=== PATIENT | male | born 1975 | race Caucasian/White ===

== ENCOUNTER → 2019-11-26 14:37 | Outpatient (CLI) | payer BC, SELFPAY ==
--- NOTE | ~2019-11-26 | MR_ITS ---
EXAMINATION: MR shoulder LT w con DATE: 11/26/2019 16:42 INDICATION: Left shoulder pain TECHNIQUE: Magnetic resonance imaging (MRI) of the left shoulder was performed following intra-artic ular gadolinium contrast injection and without intravenous contrast. Details of the glenohumeral join t injection have been dictated separately. Sequences included axial T2-weighted FS FSE, axial T1-luiz ghted FS FSE, coronal oblique T1-weighted FS FSE, coronal oblique T2-weighted FSE, sagittal T2-weight ed FS FSE, sagittal T1-weighted FSE, and ABER (abduction external rotation) T1-weighted FS FSE. COMPARISON: None. FINDINGS: Coracoacromial arch: The acromion undersurface is minimally curved in morphology (type I-II) with postoperative change of prior acromioplasty along the anterior acromion. Mild acromioclavicular osteoarthritis. Rotator cuff: Possible supraspinatus and infraspinatus tendinopathy. There is shallow articular sided fraying exten ding approximately 1.8 cm AP along the articular side of the distal 1 cm of the supraspinatus tendon and conjoined portion of the supraspinatus and infraspinatus tendons which is best appreciated on the ABER images. On the standard imaging (discernible as a minimal amount of contrast imbibition within the distal tendon without a measurable tear defect. There is a small full-thickness tear/perforation which appears to be located approximately 2 cm from the footplate at the junction of the supraspinatu s and infraspinatus tendons with there is a thin irregular tract of increased T1 signal extending acr oss the tendon to indicate with a small collection of contrast in the subacromial/subdeltoid bursa ov erlying infraspinatus tendon. The subscapularis is normal. Normal rotator cuff muscle bulk and signal . Biceps tendon, glenoid labrum and glenohumeral cartilage: Long head of the biceps tendon is intact. Irregular increased intrasubstance contrast signal at the s uperior glenoid labrum beginning at the 12:00 position and extending posteriorly to the 11:00 positio n consistent with labral tear. There appear to be suture anchor tracks along the underlying superior rim of the glenoid suggesting the tear is chronic with prior repair. No evident displacement of the l ikely repaired labrum or linear contrast signal the labrum from the underlying glenoid. Th e remainder of the glenoid labrum appears normal. There is some chondral surface regularity along the superomedial aspect of the humeral head. Bones and other: Normal marrow signal with no edema, fracture or pathologic marrow replacing process. IMPRESSION: 1. Irregular intrasubstance contrast and regular frayed appearing peripheral contour to the superior glenoid labrum with what appear to be suture anchor tracks at the superior rim of the labrum consiste nt with likely chronic repaired tear. No evident separation of the labrum from the underlying glenoid . 2. Bursal sided fraying/tear involving no greater than one third of the tendon thickness along the di stal 1 cm of the supraspinatus and conjoined supraspinatus/infraspinatus tendons. 3. Tiny full-thickness perforation which appears be located more peripherally approximately 2 cm from the footplate at the junction of the supraspinatus and infraspinatus tendons with extension of a sma ll amount of contrast into the subdeltoid bursa. 4. Mild glenohumeral and acromioclavicular osteoarthritis. 5. Changes of prior acromioplasty. Reviewed, dictated and finalized at location A. IMPRESSION: 1. Irregular intrasubstance contrast and regular frayed appearing peripheral co ntour to the superior glenoid labrum with what appear to be suture anchor track s at the superior rim of the labrum consistent with likely chronic repaired tea r. No
--- NOTE | ~2019-11-26 | XR_ITS ---
EXAMINATION: XR fl inj shoulder LT - MR/CT DATE: 11/26/2019 15:57 INDICATION: Left shoulder pain TECHNIQUE: A time-out was performed to verify the patient's name, date of , and procedure to b e performed. The procedure including the risks, benefits, and alternatives was discussed with the pat ient. Risks discussed included bleeding and infection. The patient understood the risks and agreed to proceed. The skin overlying the rotator cuff interval of the left glenohumeral joint was prepped an d draped in usual sterile fashion. Anesthetic was administered with 1% lidocaine subcutaneously. A 22 G needle was advanced under fluoroscopic guidance into the joint. Injection of 0.4 mL of Omnipaqu e 240 confirmed intra-articular position of the needle. Subsequently, injectate consisting of 12 mL of 2:1:1 mixture of sterile saline:Omnipaque 240:1% lidocaine mixed 200:1 with 529 mg/mL Multihance g adolinium contrast was instilled with intermittent fluoroscopy confirming intra-articular administrat ion. The needle was removed and the entry site was cleaned and dressed. There were no immediate comp lications. Fluoroscopy exposure time was 0.2 minutes. The total number of images was 177. FINDINGS: Real-time fluoroscopy demonstrates the needle in the left glenohumeral joint. Small, deep a rticular sided tear/perforation of the posterior rotator cuff, likely at the infraspinatus tendon and likely full-thickness. There is a small accumulation of a small collection of contrast in the subdel toid bursa which remains confined to the immediate vicinity of the tear. IMPRESSION: 1. Successful left glenohumeral joint injection of a dilute gadolinium contrast mixture for subsequen t MRI arthrogram which will be dictated separately. 2. Small full-thickness tear/perforation likely at the infraspinatus tendon. Correlate with separate MRI report for further detail.. Reviewed, dictated and finalized at location A. IMPRESSION: 1. Successful left glenohumeral joint injection of a dilute gadolinium contrast mixture for subsequent MRI arthrogram which will be dictated separately. 2. Small full-thickness tear/perforation likely at the infraspinatus tendon. Co rrelate with separate MRI report for further detail..
== END ==
DX: S46.812A Strain of other muscles, fascia and tendons at shoulder and upper arm level, left arm, initial encounter (principal); M19.012 Primary osteoarthritis, left shoulder; X58.XXXA Exposure to other specified factors, initial encounter
CPT/HCPCS: 23350; 73222; A9577; Q9966

== ENCOUNTER → 2019-12-12 12:52 | Outpatient (CLI) | payer BC, SELFPAY ==
--- NOTE | ~2019-12-12 | XR_ITS ---
EXAMINATION: XR fl inj shoulder RT - MR/CT EXAM DATE: 12/12/2019 14:29 INDICATION: Pain in right shoulder TECHNIQUE: A time-out was performed to verify the patient's name, date of , and procedure to b e performed. The procedure including the risks, benefits and alternatives were discussed with the pat ient. Risks discussed included bleeding and infection. The patient understood the risks and agreed to proceed. The skin overlying the right shoulder joint was prepped and draped in usual sterile fashio n. Anesthetic was administered with 2 milliliters 1% lidocaine subcutaneously. A 22 G needle was ad vanced under fluoroscopic guidance into the joint. A total of 10 mL of 1:200 of 529 mg/mL Multihance , 1:4 lidocaine, and 1:4 Omnipaque 240 was instilled. The needle was removed and the entry site w as cleaned and dressed. There were no immediate complications. The DAP for this procedure was 0.1 G ycm2. The procedure was performed on 12/12/2019. FINDINGS: Real-time fluoroscopy demonstrates the needle and contrast in the right shoulder joint. IMPRESSION: Successful right shoulder joint injection. Reviewed, dictated and finalized at location B. NEL SALES MANAGER
--- NOTE | ~2019-12-12 | MR_ITS ---
EXAMINATION: MR shoulder RT w con DATE: 12/12/2019 14:57 INDICATION: Right shoulder pain TECHNIQUE: Magnetic resonance imaging (MRI) of the right shoulder was performed following intra-omer cular gadolinium contrast injection and without intravenous contrast. Details of the glenohumeral lacey nt injection have been dictated separately. Sequences included axial T2-weighted FS FSE, axial T1-we ighted FS FSE, coronal oblique T1-weighted FS FSE, coronal oblique T2-weighted FSE, sagittal T2-weigh pete FS FSE, sagittal T1-weighted FSE, and ABER (abduction external rotation) T1-weighted FS FSE. COMPARISON: None. FINDINGS: Coracoacromial arch: The acromion undersurface is curved in morphology (type II). The coracoacromial ligament is normal. Severe acromioclavicular osteoarthritis with predominately cephalad directed osteophytes and with het erotopic ossification/loose body in the anterior aspect of the joint space. Rotator cuff: Mild supraspinatus tendinopathy with small shallow articular sided tear proximally 8 mm in the superi or facet footplate which is evident primarily on the ABER images. The infraspinatus, teres minor and subscapularis tendons are normal. Normal rotator cuff muscle bulk and signal. Biceps tendon, glenoid labrum and glenohumeral cartilage: Long head of the biceps tendon is normal. Normal sublabral foramen and labral sulcus at the anterosup erior glenoid. There is a labral tear which begins at approximately the 12:30 position anteriorly and extends posteriorly to approximately the 11:00 position. Maintained of the labrum is normal. Glenohu meral cartilage is normal. Bones and other: Normal marrow signal with no edema, fracture or pathologic marrow replacing process. Contrast is seen in the soft tissues at the rotator cuff interval likely reflecting small amount of extravasation at the site of the joint injection. No abnormal fluid signal in the subacromial/subdeltoid bursa to sugg est bursitis. IMPRESSION: 1. SLAP tear of the superior glenoid labrum. 2. Mild infraspinatus tendinopathy with small shallow articular sided tear/fraying centered 8 mm from the footplate. 3. Severe acromioclavicular osteoarthritis. Reviewed, dictated and finalized at location A. TH CARE CONSULTANT IMPRESSION: 1. SLAP tear of the superior glenoid labrum. 2. Mild infraspinatus tendinopathy with small shallow articular sided tear/fray ing centered 8 mm from the footplate. 3. Severe acromioclavicular osteoarthritis.
== END ==
PROVIDERS: PCP Family Medicine
DX: M19.011 Primary osteoarthritis, right shoulder (principal); S43.431A Superior glenoid labrum lesion of right shoulder, initial encounter; X58.XXXA Exposure to other specified factors, initial encounter
CPT/HCPCS: 23350; 73222; 77002; A9577; Q9966

== ENCOUNTER → 2021-10-08 08:51 | Outpatient (CLI) | payer BC, SELFPAY ==
--- NOTE | ~2021-10-08 | CT_ITS ---
EXAMINATION: CT brain wo con DATE: 10/08/2021 09:08 INDICATION: Loss of balance TECHNIQUE: Computed tomography (CT) of the head was performed without intravenous contrast. The mA wa s adjusted according to patient size. Iterative reconstruction technique was employed. Exam dose: 59 9.57 mGy-cm total exam DLP. COMPARISON: None FINDINGS: No intracranial mass lesion or hemorrhage or cerebrovascular accident. Normal ventricular s ize. Normal singh-white matter differentiation. No midline shift or mass effect. No subdural or epidur al hematoma. The orbital contents are unremarkable. The mastoid air cells and paranasal sinuses are normally developed and aerated. No fracture or bone destruction of the cranial vault. IMPRESSION: Negative Reviewed, dictated and finalized at Location [facility]. Reviewed, dictated and finalized at location B. IMPRESSION: Negative
== END ==
PROVIDERS: PCP Family Medicine
DX: R26.89 Other abnormalities of gait and mobility (principal)
CPT/HCPCS: 70450

== ENCOUNTER 2023-09-20 07:50 | Emergency (ER) | payer BC, SELFPAY ==
[2023-09-20 08:08] VITALS: BP 157/84; PULSE 64; RESP 16; TEMP 36.3; O2SAT 100
--- NOTE | 2023-09-20 08:19 | ED.MALEGU ---
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 Complaining of suprapubic pain. Related Data Home Medications Medication Instructions Recorded Confirmed clonazepam 0.5 mg tablet 0.5 mg PO 10/06/21 10/06/21 omeprazole 20 mg capsule,delayed 20 mg PO 10/06/21 10/06/21 release Allergies Allergy/AdvReac Type Severity Reaction Status Date / Time No Known Allergies Allergy Unverified 10/06/21 12:37 Review of Systems Review of Systems: All systems reviewed & are unremarkable except as noted in HPI and below PMFSH Social History Social History Smoking status: Never smoker Alcohol intake: never Substance use: never Exam Narrative: General appearance: Well-developed, well-nourished Skin: Normal color Abdomen: Soft, suprapubic tenderness Neurologic: Alert and oriented ?3, Course Consultations Consultation #1: Dr. Kumari/nurse practitionerSofya Was notified about the Chase catheter placement Date: 09/20/23 Time: 08:36 Vital Signs Vital signs: Vital Signs Temperature 36.3 C L 09/20/23 08:08 Pulse Rate 64 09/20/23 08:08 Respiratory Rate 16 09/20/23 08:08 Blood Pressure 157/84 H 09/20/23 08:08 Pulse Oximetry 100 09/20/23 08:08 Temperature 36.3 C L 09/20/23 08:08 Pulse Rate 64 09/20/23 08:08 Respiratory Rate 16 09/20/23 08:08 Blood Pressure 157/84 H 09/20/23 08:08 Pulse Oximetry 100 09/20/23 08:08 MDM - Male Genitourinary MDM Narrative Medical decision making narrative: Urinary retention requires Chase catheter placement, urine output more than 1000 mL was remarkable improvement of patient pain Critical Care Time Critical Care Time Critical Care Time: No Discharge Plan Discharge Clinical Impression: Urinary retention with incomplete bladder emptying Patient Disposition: Home, Self-Care Condition: Improved Instructions: Urinary Retention in Men (ED), Chase Catheter Placement and Care (ED), How to Change a Catheter Drainage Bag (DC) Additional Instructions: Return if symptoms are worsening , call your urologist today for appointment, take Tylenol as as needed for aches and pain, continue home medications. Prescriptions: No Action omeprazole 20 mg capsule,delayed release(DR/EC) 20 mg PO clonazepam 0.5 mg tablet 0.5 mg PO Follow-up/Referrals: Gene,David Coon MD [Primary Care Provider] -
== END 2023-09-20 09:01 | disposition home or self-care (01) ==
PROVIDERS: Emergency Provider Emergency Medicine; PCP Family Medicine
DX: N99.89 Other postprocedural complications and disorders of genitourinary system (principal); R33.8 Other retention of urine; Y83.8 Other surgical procedures as the cause of abnormal reaction of the patient, or of later complication, without mention of misadventure at the time of the procedure
CPT/HCPCS: 51702; 99283